=== PATIENT | male | born 1970 | race Caucasian/White ===

== ENCOUNTER → 2016-05-13 | Outpatient (CLI) | payer BC | LOC: MW.CHIM 05-12 14:12 | PROVIDERS: ATTEND Internal Medicine | DX: R07.9 Chest pain, unspecified (principal) | CPT/HCPCS: 93005 ==

== ENCOUNTER 2016-09-03 06:28 | Day surgery (SDC) | payer BC ==
[2016-09-03] MEDS ORDERED: Midazolam 1 MG/ML 2 ML SDV ONE (07:15)
[2016-09-03] MEDS ORDERED: Propofol 200 MG/20 ML SDV ONE (07:15)
[2016-09-03] MEDS ORDERED: fentaNYL 100 MCG/2 ML SDV ONE (07:15)
[2016-09-03] MEDS ORDERED: Lidocaine 2% 5 ML SDV ONE (07:15)
[2016-09-03] MEDS ORDERED: Bupivacaine 0.25%/EPINEPHrine 1:200,000 10 ML SDV ONE (07:22)
--- NOTE | 2016-09-03 07:32 | PCM.PREANE ---
Preanesthetic Assessment - Anesthesia/Transfusion/Family Hx Anesthesia History: Prior Anesthesia Without Reaction Other Type of Anesthesia Reaction Comment: DENIES ANY PROBLEMS WITH ANESTHESIA Family History of Anesthesia Reaction: No Transfusion History: No Prior Transfusion(s) Intubation History: Unknown - Review of Systems General: No Symptoms Pulmonary: No Symptoms Cardiovascular: No Symptoms Gastrointestinal: No symptoms Neurological: No Symptoms Other: Reports: None - Physical Assessment Height: 1.73 m Weight: 111.13 kg ASA Class: 2 Mental Status: Alert & Oriented x3 Airway Class: Mallampati = 2 Dentition: Reports: Normal Dentition Thyro-Mental Finger Breadths: 2 Mouth Opening Finger Breadths: 3 ROM/Head Extension: Full Lungs: Clear to auscultation, Normal respiratory effort Cardiovascular: Regular Rate, Regular Rhythm - Allergies Allergies/Adverse Reactions: Allergies Allergy/AdvReac Type Severity Reaction Status Date / Time vortioxetine Allergy Itching Verified 08/30/16 10:14 [From [email or web address]] - Blood Blood Available: No - Anesthesia Plan Pre-Op Medication Ordered: None - Acknowledgements Anesthesia Type Planned: MAC Pt an Appropriate Candidate for the Planned Anesthesia: Yes Alternatives and Risks of Anesthesia Discussed w Pt/Guardian: Yes Pt/Guardian Understands and Agrees with Anesthesia Plan: Yes PreAnesthesia Questionnaire HEENT History: Reports: Other (See Below) Other HEENT History: wears glasses Cardiovascular History: Reports: None Respiratory History: Reports: Sleep Apnea Other Respiratory History: uses CPAP Gastrointestinal History: Reports: GERD Genitourinary History: Reports: BPH Musculoskeletal History: Reports: Arthritis, Gout, Other (See Below) (hallux varus limitus (bilat), bilat foot pain, ankle instability) Neurological History: Reports: Migraines, TIA (a year ago with facial drooping and left side weakness. CT scan was normal.) Psychiatric History: Reports: Anxiety, Depression Endocrine/Metabolic History: Reports: Obesity/BMI 30+, Other (See Below) Other Endocrine/Metabolic History: was told once he was "borderline diabetic" Hematologic History: Reports: None Immunologic History: Reports: None Oncologic (Cancer) History: Reports: None Dermatologic History: Reports: None - Infectious Disease History Infectious Disease History: Reports: None - Past Surgical History Head Surgeries/Procedures: Reports: None HEENT Surgical History: Reports: Other (See Below) Other HEENT Surgeries/Procedures: Right ear drum Cardiovascular Surgical History: Reports: None, Other (See Below) (coronary angiogram '98 was normal) GI Surgical History: Reports: Cholecystectomy, Hernia, Inguinal (right) Other GI Surgeries/Procedures: hx inguinal hernia with mesh Musculoskeletal Surgical History: Reports: Arthroscopic Knee (right), Other ( See Below) Other Musculoskeletal Surgeries/Procedures:: Right index finger with distal amputation - SUBSTANCE USE Smoking Status *Q: Never Smoker Tobacco Use Within Last Twelve Months:  Second Hand Smoke Exposure: No Days Per Week of Alcohol Use: 0 Number of Drinks Per Day: 0 Total Drinks Per Week: 0 Recreational Drug Use History: No - HOME MEDS Home Medications: Home Meds Multivitamin [Multivitamins] 1 tab PO DAILY 11/15/13 [History] Omeprazole 20 mg PO DAILY 07/24/14 [History] Turmeric Root Extract [Turmeric] 1 tab PO DAILY 08/30/16 [History] - CURRENT (IN HOUSE) MEDS Current Meds: Current Medications Hydrocodone Bitart/Acetaminophen ([place] 325-5 Mg) 1 tab PO Q4H PRN PRN Reason: Pain Bupivacaine HCl/Epinephrine Bitart (Marcaine 0.25%/Epinephrine 1:200,000) 10 ml INJECT ONETIME ONE Stop: 09/03/16 08:01 Lactated Ringer's (Ringers, Lactated) 1,000 mls @ 125 mls/hr IV ASDIRECTED KEY Cefazolin Sodium/Dextrose 2 gm (/ Premix) 50 mls @ 100 mls/hr IV ONETIME ONE Stop: 09/03/16 08:29 Discontinued Medications Bupivacaine HCl/Epinephrine Bitart (Marcaine 0.25%/Epinephrine 1:200,000) Confirm Administered Dose 10 ml .ROUTE .STK-MED ONE Stop: 09/03/16 07:23 Fentanyl (Sublimaze) Confirm Administered Dose 100 mcg .ROUTE .STK-MED ONE Stop: 09/03/16 07:16 Lidocaine (Xylocaine-Mpf 2%) Confirm Administered Dose 5 ml .ROUTE .STK-MED ONE Stop: 09/03/16 07:16 Midazolam HCl (Versed 1 Mg/Ml) Confirm Administered Dose 2 mg .ROUTE .STK-MED ONE Stop: 09/03/16 07:16 Propofol (Diprivan 20 Ml) Confirm Administered Dose 400 mg .ROUTE .STK-MED ONE Stop: 09/03/16 07:16
[2016-09-03] MEDS ORDERED: ceFAZolin 2 GM in Premix Bag 1 BAG IV ONE (08:00)
[2016-09-03] MEDS ORDERED: Acetaminophen/HYDROcodone 325-5 MG Tab PO PRN (08:00)
[2016-09-03] MEDS ORDERED: Bupivacaine 0.25%/EPINEPHrine 1:200,000 10 ML SDV INJECT ONE (08:00)
[2016-09-03] MEDS ORDERED: Lactated Ringers 1,000 ML IV SCH (08:00)
[2016-09-03 10:12] VITALS: BP 116/62
--- NOTE | 2016-09-06 12:14 | PCM.OPNOTE ---
- General Post-Op/Procedure Note Date of Surgery/Procedure: 09/03/16 Operative Procedure(s): right carpal tunnel release Pre Op Diagnosis: right carpal tunnel syndrome Post-Op Diagnosis: Same Anesthesia Technique: Local, MAC Primary Surgeon: Madisyn Acevedo Floorworker Lasting: Teri Langston Complications: None Condition: Good Free Text/Narrative:: [id number]
--- NOTE | 2016-09-06 14:16 | OR ---
SURGEON: JELLY PORRAS MD DATE OF PROCEDURE: 09/03/2016 PREOPERATIVE DIAGNOSIS: Right carpal tunnel syndrome. POSTOPERATIVE DIAGNOSIS: Right carpal tunnel syndrome. PROCEDURE: Right carpal tunnel release. NIBBLER OPERATOR: JOSÉ Gauthier INDICATIONS: Mr. Nino is a 46-year-old gentleman seen today for carpal tunnel syndrome on the right. Risks and benefits of release were discussed with him and he was in agreement to proceed. Risks were including, but not limited to, bleeding, infection, damage to underlying or overlying structures, possible need for future interventions and possible scarring. PROCEDURE IN DETAIL: After informed consent was obtained and placed on the chart, the patient was brought to the operating theater and laid in supine position. After adequate local MAC anesthetic was obtained, a time-out was completed to confirm side and site. Attention was then paid to exsanguination of the arm and the tourniquet was insufflated to 200 mmHg. Dissection was then carried over the transverse carpal ligament with a 15 blade through the skin and subcutaneous tissues. Then once reached, Littler scissors distally and proximally under direct visualization for complete release. Once adequately released, attention was then paid to irrigation and closure using 5-0 nylon stitches in a horizontal mattress fashion. The patient tolerated this well. The wound was dressed with Xeroform, fluffs, and a Kerlix and a 2-inch ALEYDA wrap. The patient tolerated this well. All counts and needles were correct at the end the case. FOLLOWUP INSTRUCTIONS: The patient will see us in 10 to 14 days or sooner if any problems, questions, or concerns. He was given a prescription for pain control. MATT / MK /[id number]
== END 2016-09-03 09:10 | disposition home or self-care (01) ==
LOC: MW.SDS 06:28
PROVIDERS: ATTEND Plastic Surgery
PROC: 01N50ZZ Release Median Nerve, Open Approach (ICD-10-PCS; principal; 2016-09-03)
DX: G56.01 Carpal tunnel syndrome, right upper limb (principal); F41.9 Anxiety disorder, unspecified; F32.9 Major depressive disorder, single episode, unspecified; K21.9 Gastro-esophageal reflux disease without esophagitis; M10.9 Gout, unspecified; E78.5 Hyperlipidemia, unspecified; G47.33 Obstructive sleep apnea (adult) (pediatric); M19.90 Unspecified osteoarthritis, unspecified site; N40.0 Benign prostatic hyperplasia without lower urinary tract symptoms; G43.909 Migraine, unspecified, not intractable, without status migrainosus; E66.9 Obesity, unspecified; Z88.8 Allergy status to other drugs, medicaments and biological substances; Z86.73 Personal history of transient ischemic attack (TIA), and cerebral infarction without residual deficits; Z99.89 Dependence on other enabling machines and devices; Z79.899 Other long term (current) drug therapy; Z98.890 Other specified postprocedural states; Z90.49 Acquired absence of other specified parts of digestive tract; Z89.021 Acquired absence of right finger(s); Z68.37 Body mass index [BMI] 37.0-37.9, adult
CPT/HCPCS: 64721; J2250; J3010; J7120; 01810; J2704

== ENCOUNTER 2016-09-22 06:56 | Day surgery (SDC) | payer BC ==
[~2016-09-22 06:56] MED LIST: Bupivacaine 0.25%/EPINEPHrine 1:200,000 10 ML SDV INJECT ONE; ceFAZolin 2 GM in Premix Bag 1 BAG IV ONE
[2016-09-22] MEDS ORDERED: Acetaminophen/HYDROcodone 325-5 MG Tab PO PRN (07:00)
[2016-09-22] MEDS ORDERED: Lactated Ringers 1,000 ML IV SCH (07:00)
[2016-09-22] MEDS ORDERED: Bupivacaine 0.25%/EPINEPHrine 1:200,000 10 ML SDV ONE (07:25)
--- NOTE | 2016-09-22 07:47 | PCM.PREANE ---
Preanesthetic Assessment - Anesthesia/Transfusion/Family Hx Anesthesia History: Prior Anesthesia Without Reaction Other Type of Anesthesia Reaction Comment: DENIES ANY PROBLEMS WITH ANESTHESIA Family History of Anesthesia Reaction: No Transfusion History: No Prior Transfusion(s) Intubation History: Unknown - Review of Systems General: No Symptoms Pulmonary: No Symptoms Cardiovascular: No Symptoms Gastrointestinal: No Symptoms Neurological: No Symptoms Other: Reports: None - Physical Assessment Height: 1.73 m Weight: 111.13 kg ASA Class: 2 Mental Status: Alert & Oriented x3 Airway Class: Mallampati = 3 Dentition: Reports: Normal Dentition Thyro-Mental Finger Breadths: 2 Mouth Opening Finger Breadths: 3 ROM/Head Extension: Full Lungs: Clear to Auscultation, Normal Respiratory Effort Cardiovascular: Regular Rate, Regular Rhythm - Allergies Allergies/Adverse Reactions: Allergies Allergy/AdvReac Type Severity Reaction Status Date / Time vortioxetine Allergy Itching Verified 08/30/16 10:14 [From [email or web address]] - Blood Blood Available: No - Anesthesia Plan Pre-Op Medication Ordered: None - Acknowledgements Anesthesia Type Planned: MAC Pt an Appropriate Candidate for the Planned Anesthesia: Yes Alternatives and Risks of Anesthesia Discussed w Pt/Guardian: Yes Pt/Guardian Understands and Agrees with Anesthesia Plan: Yes PreAnesthesia Questionnaire HEENT History: Reports: Other (See Below) Other HEENT History: wears glasses Cardiovascular History: Reports: None Respiratory History: Reports: Sleep Apnea Other Respiratory History: uses CPAP Gastrointestinal History: Reports: GERD Genitourinary History: Reports: BPH Musculoskeletal History: Reports: Arthritis, Gout, Other (See Below) Neurological History: Reports: Migraines, TIA (july last year) Psychiatric History: Reports: Anxiety, Depression Endocrine/Metabolic History: Reports: Obesity/BMI 30+, Other (See Below) Other Endocrine/Metabolic History: was told once he was "borderline diabetic" Hematologic History: Reports: None Immunologic History: Reports: None Oncologic (Cancer) History: Reports: None Dermatologic History: Reports: None - Infectious Disease History Infectious Disease History: Reports: None - Past Surgical History Head Surgeries/Procedures: Reports: None HEENT Surgical History: Reports: Other (See Below) Other HEENT Surgeries/Procedures: Right ear drum Cardiovascular Surgical History: Reports: None, Other (See Below) (coronary angiogram about 15 years ago- normal) GI Surgical History: Reports: Cholecystectomy, Hernia, Inguinal Other GI Surgeries/Procedures: hx inguinal hernia with mesh Musculoskeletal Surgical History: Reports: Arthroscopic Knee, Carpal Tunnel, Other (See Below) Other Musculoskeletal Surgeries/Procedures:: Right index finger with distal amputation - SUBSTANCE USE Smoking Status *Q: Former Smoker Tobacco Use Within Last Twelve Months:  Second Hand Smoke Exposure: No Days Per Week of Alcohol Use: 0 Number of Drinks Per Day: 0 Total Drinks Per Week: 0 Recreational Drug Use History: No - HOME MEDS Home Medications: Home Meds Multivitamin [Multivitamins] 1 tab PO DAILY 11/15/13 [History] Omeprazole 20 mg PO DAILY 07/24/14 [History] - CURRENT (IN HOUSE) MEDS Current Meds: Current Medications Hydrocodone Bitart/Acetaminophen ([place] 325-5 Mg) 1 tab PO Q4H PRN PRN Reason: Pain Lactated Ringer's (Ringers, Lactated) 1,000 mls @ 125 mls/hr IV ASDIRECTED KEY Last Admin: 09/22/16 07:29 Dose: 125 mls/hr Discontinued Medications Bupivacaine HCl/Epinephrine Bitart (Marcaine 0.25%/Epinephrine 1:200,000) 10 ml INJECT ONETIME ONE Stop: 09/22/16 00:02 Bupivacaine HCl/Epinephrine Bitart (Marcaine 0.25%/Epinephrine 1:200,000) Confirm Administered Dose 10 ml .ROUTE .STK-MED ONE Stop: 09/22/16 07:26 Cefazolin Sodium/Dextrose 2 gm (/ Premix) 50 mls @ 100 mls/hr IV ONETIME ONE Stop: 09/21/16 17:53
[2016-09-22] MEDS ORDERED: Lidocaine 2% 5 ML SDV ONE (08:05)
[2016-09-22] MEDS ORDERED: Propofol 200 MG/20 ML SDV ONE (08:05)
[2016-09-22] MEDS ORDERED: fentaNYL 100 MCG/2 ML SDV ONE (08:05)
[2016-09-22] MEDS ORDERED: Midazolam 1 MG/ML 2 ML SDV ONE (08:05)
[2016-09-22] MEDS ORDERED: ceFAZolin 1 GM Vial ONE (08:39)
[2016-09-22 10:58] VITALS: BP 134/80
--- NOTE | 2016-09-23 16:50 | PCM.OPNOTE ---
- General Post-Op/Procedure Note Date of Surgery/Procedure: 09/22/16 Operative Procedure(s): left carpal tunnel release Pre Op Diagnosis: left carpal tunnel syndrome Post-Op Diagnosis: Same Anesthesia Technique: Local, MAC Primary Surgeon: Madisyn Acevedo Electrotherapist: Teri Langston Complications: None Condition: Good Free Text/Narrative:: [phone]
--- NOTE | 2016-09-23 21:07 | OR ---
SURGEON: JELLY PORRAS MD DATE OF PROCEDURE: 09/22/2016 PREOPERATIVE DIAGNOSIS: Left carpal tunnel syndrome. POSTOPERATIVE DIAGNOSIS: Left carpal tunnel syndrome. PROCEDURE: Left carpal tunnel release. INDICATIONS: Mr. Nino is a 46-year-old gentleman with left carpal tunnel syndrome. He has previously had a right release and is now here for the left. Risks and benefits of release were discussed. He was in agreement to proceed. Risks were including, but not limited to, bleeding, infection, damage to underlying or overlying structures, possible need for future interventions, and possible scarring. PROCEDURE IN DETAIL: After informed consent was obtained and placed on the chart, the patient was brought to the operating theater and laid in supine position. After adequate local MAC anesthetic was obtained, the area was prepped and draped, and a time- out was completed to confirm side and site. Attention was then paid to dissection over the transverse carpal ligament. After exsanguination of the arm and insufflation of the tourniquet to 200 mmHg. Dissection was first carried through the skin and through the subcutaneous tissues. Once the ligament was breached and the nerve was released. The area was irrigated and complete release was ensured. A 5-0 nylon was used to close the skin in a horizontal mattress fashion. Once adequately closed, the wound was dressed with Xeroform, fluffs, and a Kerlix gauze dressing. A 2-inch ALEYDA wrap was used. All counts needles were correct at the end of the case. The patient tolerated the procedure well. FOLLOWUP INSTRUCTIONS: The patient will see us in 10 to 14 days for suture removal, or sooner if any problems, questions, or concerns. MATT / MK /[id number]
== END 2016-09-22 09:53 | disposition home or self-care (01) ==
LOC: MW.SDS 06:56
PROVIDERS: ATTEND Plastic Surgery
DX: G56.02 Carpal tunnel syndrome, left upper limb (principal); F41.9 Anxiety disorder, unspecified; F32.9 Major depressive disorder, single episode, unspecified; K21.9 Gastro-esophageal reflux disease without esophagitis; E78.5 Hyperlipidemia, unspecified; G47.33 Obstructive sleep apnea (adult) (pediatric); Z88.8 Allergy status to other drugs, medicaments and biological substances; Z79.899 Other long term (current) drug therapy; Z98.890 Other specified postprocedural states; Z72.0 Tobacco use
CPT/HCPCS: 64721; J0690; J2250; J3010; J7120; 01810; J2704

== ENCOUNTER 2023-04-15 07:48 | Day surgery (SDC) | payer OTHER ==
[2023-04-15] MEDS: Lactated Ringers 1,000 ML IV SCH (08:20)
[2023-04-15] MEDS ORDERED: Magnesium Sulfate (4.06 MEQ/ML) 5 GM/10 ML SDV ONE (08:47)
[2023-04-15] MEDS ORDERED: Water For Injection, Sterile 20 ML ONE (08:47)
[2023-04-15] MEDS ORDERED: dexmedeTOMIDine HCl 200 MCG/2 ML SDV ONE (08:47)
[2023-04-15] MEDS ORDERED: propofoL 50 ML ONE (09:24)
[2023-04-15] MEDS ORDERED: Lactated Ringers 1,000 ML IV SCH (10:00)
[2023-04-15 11:50] VITALS: BP 116/66; PULSE 57
== END 2023-04-15 10:37 | disposition home or self-care (01) ==
LOC: MW.SDS 07:48
PROVIDERS: ATTEND Surgery
DX: Z12.11 Encounter for screening for malignant neoplasm of colon (principal); K57.30 Diverticulosis of large intestine without perforation or abscess without bleeding; Z86.010 Personal history of colon polyps; F41.9 Anxiety disorder, unspecified; N40.0 Benign prostatic hyperplasia without lower urinary tract symptoms; K21.9 Gastro-esophageal reflux disease without esophagitis; M19.90 Unspecified osteoarthritis, unspecified site; G47.33 Obstructive sleep apnea (adult) (pediatric); E66.9 Obesity, unspecified; Z68.34 Body mass index [BMI] 34.0-34.9, adult; Z87.891 Personal history of nicotine dependence; Z79.82 Long term (current) use of aspirin; Z79.899 Other long term (current) drug therapy
CPT/HCPCS: 45378; J2704; J3475; J7120; J3490